=== PATIENT | male | born 1950 | race Caucasian/White ===

== ENCOUNTER 2025-02-10 10:57 | Outpatient (CLI) | payer MEDICARE, BC ==
[2025-02-10 11:58] LABS: Hematocrit 30.2 % (38.8-50.0); Hemoglobin 10.0 g/dL (13.5-17.5); Mean Corpuscular Hemoglobin 28.9 pg (27.0-33.0); Mean Corpuscular Volume 87.3 fL (81.2-95.1); Platelet Count 583 10x3/uL (150-450); Red Blood Cell (RBC) Count 3.46 10x6/uL (4.32-5.72); White Blood Cell (WBC) Count 15.38 10x3/uL (3.5-10.5)
[2025-02-10 12:38] LABS: Magnesium 1.4 mg/dL (1.6-2.6)
[2025-02-10 12:39] LABS: ALT (SGPT) 40 U/L (Less than 45); AST (SGOT) 23 U/L (11-34); Albumin 2.6 g/dL (3.1-4.5); Alkaline Phosphatase 176 U/L (40-110); Anion Gap 19 mmol/L (10-20); BUN (Urea Nitrogen) 18 mg/dL (8.4-25.7); Bilirubin, Total 0.7 mg/dL (0.3-1.2); Calc. Creatinine Clearance 0 mL/min (70-130); Calcium 9.0 mg/dL (7.8-10.44); Carbon Dioxide 27 mmol/L (23-31); Chloride 85 mmol/L (98-107); Globulin 4.1 g/dL (2.4-3.5); Glucose 124 mg/dL (83-110); Potassium 3.8 mmol/L (3.5-5.1); Sodium 127 mmol/L (136-145)
== END 2025-02-10 10:58 | disposition home or self-care (01) ==
LOC: CSHLAB 10:57
PROVIDERS: ATTEND Surgery
DX: Z01.818 Encounter for other preprocedural examination (principal); N18.2 Chronic kidney disease, stage 2 (mild); I10 Essential (primary) hypertension; E87.1 Hypo-osmolality and hyponatremia
CPT/HCPCS: 80053; 83735; 84100; 85027; 93005; 93010